=== PATIENT | male | born 1965 | race African-American/Black ===

== ENCOUNTER 2017-09-25 06:41 | Emergency (ER) | payer SELFPAY ==
[2017-09-25 06:49] VITALS: BP 134/95
[2017-09-25] MEDS ORDERED: PENICILLIN V POTASSIUM 500 MG TABLET PO ONE (07:16)
[2017-09-25] MEDS ORDERED: IBUPROFEN 800 MG TABLET PO ONE (07:17)
--- NOTE | 2017-09-25 07:17 | ER Document Report ---
ED General - General Mode of Arrival: Ambulatory Information source: Patient TRAVEL OUTSIDE OF THE [place] IN LAST 30 DAYS: No - General Chief Complaint: Toothache Stated Complaint: TOOTH PAIN Time Seen by Provider: 09/25/17 07:02 Notes: Patient is a 52 year old male presenting to the emergency department complaining of tooth pain and mouth swelling onset 3 days ago. Patient denies any trauma to his teeth or mouth. No other history was given. (EMIL SOUZA) Past Medical History - General Information source: Law Enforcement - Social History Smoking Status: Never Smoker Cigarette use (# per day): No Chew tobacco use (# tins/day): No Smoking Education Provided: No Frequency of alcohol use: None Drug Abuse: None Occupation: Packaging Family History: Reviewed & Not Pertinent Review of Systems - Review of Systems Constitutional: No symptoms reported EENT: See HPI, Mouth pain, Dental problem Cardiovascular: No symptoms reported Respiratory: No symptoms reported Gastrointestinal: No symptoms reported Genitourinary: No symptoms reported Male Genitourinary: No symptoms reported Musculoskeletal: No symptoms reported Skin: No symptoms reported Hematologic/Lymphatic: No symptoms reported Neurological/Psychological: No symptoms reported -: Yes All other systems reviewed and negative Physical Exam - General General appearance: Appears well, Alert In distress: None - HEENT Head: Normocephalic, Atraumatic Eyes: Normal Extraocular movements intact: Yes Pupils: PERRL Mouth/Lips: Other - Right upper 2nd molar decayed. There is some gum swelling above the 2nd molar. Mucous membranes: Normal Neck: Normal - Respiratory Respiratory status: No respiratory distress - Extremities General upper extremity: Normal ROM General lower extremity: Normal ROM - Neurological Neuro grossly intact: Yes Cognition: Normal Orientation: AAOx4 [place] Coma Scale Eye Opening: Spontaneous [place] Coma Scale Verbal: Oriented Pablo Coma Scale Motor: Obeys Commands Pablo Coma Scale Total: 15 Speech: Normal - Psychological Associated symptoms: Normal affect, Normal mood - Skin Skin Temperature: Warm Skin Moisture: Dry Skin Color: Normal - Vital signs Vitals: Temp Pulse Resp BP Pulse Ox 98.8 F 86 18 134/95 H 96 09/25/17 06:46 09/25/17 06:46 09/25/17 06:46 09/25/17 06:46 09/25/17 06:46 Course - Re-evaluation Re-evalutation: 06/11/18 07:22 PROCEEDURE: The swollen gum area above the right upper second molar was punctured with an 18 -gauge needle releasing a large amount of pus. The puncture wound was enlarged by using the lateral bevel of the needle to lacerate the tissue. (CONCHITA LANDIS ) - Vital Signs Vital signs: Temp Pulse Resp BP Pulse Ox 98.8 F 86 18 134/95 H 96 09/25/17 06:52 09/25/17 06:52 09/25/17 06:52 09/25/17 06:52 09/25/17 06:52 Discharge - Discharge Clinical Impression: Dental abscess Condition: Stable Disposition: HOME, SELF-CARE Instructions: Dentist Additional Instructions: Dental Infection or Abscess: You have an infection, an abscess (pus formation) of the gum around one of your teeth, which is probably decayed. Your abscess was drained by puncturing with the 18-gauge needle. Severe swelling or drainage around a tooth usually means a deep dental abscess which usually requires evaluation and treatment by a dentist or oral surgeon. Antibiotics may be prescribed while awaiting dental treatment. If you develop high fever with chills, worsening pain, or increasing swelling in the area, see a dentist or oral surgeon immediately or return to the Emergency Department immediately. Take the penicillin as prescribed. Take ibuprofen 600 mg every 8 hours for inflammation pain. Take the hydrocodone as prescribed for pain if the ibuprofen is not enough to control your pain. Use warm soaks to your right jaw where the swelling is. Follow-up with a dentist as soon as you can. RETURN TO THE EMERGENCY ROOM IF ANY NEW OR WORSENING SYMPTOMS. Prescriptions: Hydrocodone/Acetaminophen [Hydrocodon-Acetaminophen 5-325] 1 each PO Q4 PRN #15 tablet PRN Reason: For Pain Penicillin V Potassium [Penicillin Vk 500 mg Tablet] 500 mg PO QID #28 tablet Scribe Attestation: 09/25/17 07:22 I personally performed the services described in the documentation, reviewed and edited the documentation which was dictated to the scribe in my presence, and it accurately records my words and actions. (CONCHITA LANDIS) Scribe Documentation - Scribe Written by Vinicioe:: Matt Dexter, 09/25/2017 07:30 acting as scribe for :: Navid
== END 2017-09-25 07:45 | disposition home or self-care (01) ==
LOC: ER 06:41
PROC: 0C9WXZ0 Drainage of Upper Tooth, External Approach, Single (ICD-10-PCS; principal; 2017-09-25)
DX: K04.7 Periapical abscess without sinus (principal); K08.89 Other specified disorders of teeth and supporting structures; R22.0 Localized swelling, mass and lump, head
CPT/HCPCS: 99282

== ENCOUNTER 2018-02-08 06:42 | Emergency (ER) | payer OTHER ==
[2018-02-08 06:48] VITALS: BP 142/88
--- NOTE | 2018-02-08 07:03 | ER Document Report ---
ED Extremity Problem, Lower - General Information source: Patient TRAVEL OUTSIDE OF THE [place] IN LAST 30 DAYS: No <LORRAINE PRUETT - Last Filed: 02/08/18 07:25> <CONCHITA LANDIS - Last Filed: 02/08/18 08:38> - General Chief Complaint: Leg Injury Stated Complaint: LEG INJURY AT WORK Time Seen by Provider: 02/08/18 06:52 Notes: Patient is a 52 year old male that presents to the emergency department today with complaints of left thigh pain which began last night while at work. Patient states he feels like he pulled a muscle. Patient states he works for [employer] and was moving a large amount of meat when he felt something that felt like a "franklin horse". Patient has had continued pain since last night. ( LORRAINE PRUETT) - Related Data Allergies/Adverse Reactions: No Known Allergies Allergy (Verified 09/25/17 07:35) Past Medical History - General Information source: Patient - Social History Smoking Status: Never Smoker Cigarette use (# per day): No Chew tobacco use (# tins/day): No Frequency of alcohol use: None Drug Abuse: None Lives with: Family Family History: Reviewed & Not Pertinent Patient has suicidal ideation: No Patient has homicidal ideation: No Surgical Hx: Negative <LORRAINE PRUETT - Last Filed: 02/08/18 07:25> Review of Systems - Review of Systems Constitutional: No symptoms reported EENT: No symptoms reported Cardiovascular: No symptoms reported Respiratory: No symptoms reported Gastrointestinal: No symptoms reported Genitourinary: No symptoms reported Male Genitourinary: No symptoms reported Musculoskeletal: See HPI, Other - left thigh pain Skin: No symptoms reported Hematologic/Lymphatic: No symptoms reported Neurological/Psychological: No symptoms reported -: Yes All other systems reviewed and negative <LORRAINE PRUETT - Last Filed: 02/08/18 07:25> Physical Exam <LORRAINE PRUETT - Last Filed: 02/08/18 07:25> <CONCHITA LANDIS - Last Filed: 02/08/18 08:38> - Vital signs Vitals: Temp Pulse Resp BP Pulse Ox 97.8 F 81 18 142/88 H 99 02/08/18 06:47 02/08/18 06:47 02/08/18 06:47 02/08/18 06:47 02/08/18 06:47 - Notes Notes: Physical Exam: General: Alert, appears well. HEENT: Normocephalic. Atraumatic. PERRL. Extraocular movements intact. Oropharynx clear. Neck: Supple. Non-tender. Respiratory: No respiratory distress. Clear and equal breath sounds bilaterally. Cardiovascular: Regular rate and rhythm. Abdominal: Normal Inspection. Non-tender. No distension. Normal Bowel Sounds. Back: Non-tender. No deformity or step off. Extremities: Moves all four extremities. Upper extremities: Normal inspection. Normal ROM. Lower extremities: Left anterior thigh is firm and tender. The firmness and tenderness increases down the thigh distally. Small area of swelling and bulging. Possible hematoma. Neurological: Normal cognition. AAOx4. Normal speech. Psychological: Normal affect. Normal Mood. Skin: Warm. Dry. Normal color. (LORRAINE PRUETT) Course - Laboratory Result Diagrams: 02/08/18 07:20 02/08/18 07:20 <LORRAINE PRUETT - Last Filed: 02/08/18 07:25> - Laboratory Result Diagrams: 02/08/18 07:20 02/08/18 07:20 <CONCHITA LANDIS - Last Filed: 02/08/18 08:38> - Vital Signs Vital signs: Temp Pulse Resp BP Pulse Ox 97.8 F 81 18 142/88 H 99 02/08/18 06:47 02/08/18 06:47 02/08/18 06:47 02/08/18 06:47 02/08/18 06:47 - Laboratory Laboratory results interpreted by me: 02/08/18 02/08/18 07:20 07:20 WBC 2.3 L Seg Neutrophils % 40.4 L Monocytes % 14.1 H Absolute Neutrophils 0.9 L Carbon Dioxide 32 H ALT 19 L Creatine Kinase 251 H Discharge <LORRAINE PRUETT - Last Filed: 02/08/18 07:25> <CONCHITA LANDIS - Last Filed: 02/08/18 08:38> - Discharge Clinical Impression: Muscle strain Condition: Stable Disposition: HOME, SELF-CARE Additional Instructions: Muscle Strain: You have strained a muscle -- torn the fibers within the muscle. This often occurs with strenuous exertion, or during an injury that suddenly stretches the muscle. The seriousness of a strain varies. Some strains heal within days, others cause problems for months. X-rays cannot show a muscle strain. X-rays are taken only if symptoms suggest that a fracture could be present. The usual treatment of a muscle strain is rest and ice packs. Sometimes, a sling, splint, or crutches may be necessary to rest the muscle. The muscle can be used again once pain subsides. Severe strains require a special exercise and stretching program to prevent permanent stiffness and disability. Your doctor will advise you if this will be necessary. Call the doctor immediately if pain or swelling becomes severe, or if numbness or discoloration develop. Use the knee immobilizer to prevent stretching the anterior thigh muscles. Limit walking as much as possible. Elevate your left foot above the heart is much as possible. Use ice packs to the painful anterior thigh muscle for the next 1-2 days. Take ibuprofen 600 mg every 8 hours. Follow-up with a local medical doctor or with [facility] if you do not improve over the next several days. RETURN TO THE EMERGENCY ROOM IF ANY NEW OR WORSENING SYMPTOMS. Forms: Return to Work Referrals: [facility] ([facility]) [Provider Group] - Follow up as needed Scribe Attestation: 02/08/18 08:35 I personally performed the services described in the documentation, reviewed and edited the documentation which was dictated to the scribe in my presence, and it accurately records my words and actions. (CONCHITA LANDIS) Scribe Documentation - Scribe Written by Matt:: Matt Moreno, 02/08/2018 0725 acting as scribe for :: Navid <LORRAINE PRUETT - Last Filed: 02/08/18 07:25>
[2018-02-08 07:28] LABS: ABSOLUTE EOSINOPHILS # (AUTO) 0.1 10^3/uL (0.0-0.6); ABSOLUTE LYMPHOCYTES (AUTO) 0.9 10^3/uL (0.5-4.7); ABSOLUTE MONOCYTES (AUTO) 0.3 10^3/uL (0.1-1.4); ABSOLUTE NEUT (AUTO) 0.9 10^3/uL (1.7-8.2); BASOPHILS % (AUTO) 0.7 % (0-2); EOSINOPHILS % (AUTO) 4.4 % (0-6); HEMATOCRIT 41.5 % (37.9-51.0); HEMOGLOBIN 14.1 g/dL (13.5-17.0); LYMPHOCYTES % (AUTO) 40.4 % (13-45); MEAN CORPUSCULAR HEMOGLOBIN 31.3 pg (27.0-33.4); MEAN CORPUSCULAR VOLUME 92 fl (80-97); MONOCYTES % (AUTO) 14.1 % (3-13); PLATELET COUNT 161 10^3/uL (150-450); RED BLOOD COUNT 4.51 10^6/uL (4.35-5.55); RED CELL DISTRIBUTION WIDTH 13.3 % (11.5-14.0); SEGMENTED NEUTROPHILS % (AUTO) 40.4 % (42-78); TOTAL CELLS COUNTED % (AUTO) 100 %; WHITE BLOOD COUNT 2.3 10^3/uL (4.0-10.5)
[2018-02-08 07:49] LABS: ALANINE AMINOTRANSFERASE 19 U/L (21-72); ALBUMIN 3.7 g/dL (3.5-5.0); ALKALINE PHOSPHATASE 64 U/L (38-126); ANION GAP 5 (5-19); ASPARTATE AMINO TRANSFERASE 28 U/L (17-59); BILIRUBIN,DIRECT 0.2 mg/dL (0.0-0.4); BILIRUBIN,TOTAL 0.8 mg/dL (0.2-1.3); BLOOD UREA NITROGEN 12 mg/dL (7-20); CALCIUM 9.4 mg/dL (8.4-10.2); CARBON DIOXIDE 32 mmol/L (22-30); CHLORIDE 103 mmol/L (98-107); CREATINE KINASE 251 U/L (55-170); GLUCOSE 88 mg/dL (75-110); SODIUM 140.1 mmol/L (137-145); TOTAL PROTEIN 6.5 g/dL (6.3-8.2)
== END 2018-02-08 08:59 | disposition home or self-care (01) ==
LOC: ER 06:42
DX: S73.192A Other sprain of left hip, initial encounter (principal); M79.652 Pain in left thigh
CPT/HCPCS: 36415; 80053; 82550; 85025; 99283